=== PATIENT | female | born 1955 | race Caucasian/White ===

== ENCOUNTER → 2018-04-07 | Outpatient (CLI) | payer BC ==
[~2018-04-07] MED LIST: LISINOPRIL40 MG PO; LOPRESSOR50 MG PO; LORAZEPAM1 MG PO; METFORMIN HCL1000 MG PO; NORVASC10 MG PO; PERCOCET 5/31 TABLET PO; PRAVACHOL20 MG PO
[2018-04-07 08:40] LABS: HEMATOCRIT 43.9 % (36.0-46.0); HEMOGLOBIN 14.1 G/DL (11.9-15.5); MCH 27.8 PG (29.0-34.0); MCHC 32.1 G/DL (30.0-36.0); MCV 86.6 FL (83-99); PLATELET COUNT 274 K/uL (156-360); RBC DIS.WIDTH-CV 14.6 % (11.8-14.6); RED BLOOD COUNT 5.07 M/uL (3.80-5.20); WHITE BLOOD COUNT 6.1 K/uL (4.1-10.2)
[2018-04-07 08:46] LABS: INTER. NORMALIZED RATIO 0.9
== END | disposition home or self-care (01) ==
LOC: OPR 03-24 08:00 → EDSTATUS 08:00
PROVIDERS: Internal Medicine Pulmonary Disease
PROC: 0BBG3ZX Excision of Left Upper Lung Lobe, Percutaneous Approach, Diagnostic (ICD-10-PCS; principal; 2018-04-07)
DX: R91.8 Other nonspecific abnormal finding of lung field (principal); F17.200 Nicotine dependence, unspecified, uncomplicated; E78.5 Hyperlipidemia, unspecified; I10 Essential (primary) hypertension; M19.90 Unspecified osteoarthritis, unspecified site; E11.9 Type 2 diabetes mellitus without complications; Z79.84 Long term (current) use of oral hypoglycemic drugs
CPT/HCPCS: 71045; 77012; 82948; 85027; 85610; 85730; 88305; J3010